=== PATIENT | male | born 1995 | race Caucasian/White ===

== ENCOUNTER 2024-01-23 13:04 | Emergency (ER) | payer MEDICAID ==
[~2024-01-23] VITALS: Ht 172.7 cm; Wt 77.1 kg
[2024-01-23] MEDS ORDERED: ALBU6.7H9 INH (13:33)
[2024-01-23 13:41] VITALS: BP 113/68; TEMP 98.9; O2SAT 93
== END 2024-01-23 13:41 | disposition home or self-care (01) ==
LOC: ER 13:24
DX: J20.9 Acute bronchitis, unspecified (principal); R51.9 Headache, unspecified